=== PATIENT | female | born 1985 | race African-American/Black ===

== ENCOUNTER 2018-04-24 14:27 | Emergency (ER) | payer OTHER ==
[~2018-04-24] VITALS: Ht 162.6 cm; Wt 65.8 kg
[~2018-04-24 14:27] MED LIST: IBUPROFEN600 MG ORAL; NKM; ROBAXIN500 MG PO
[2018-04-24] MEDS ORDERED: PREDNISONE20 MG ORAL (15:02)
--- NOTE | 2018-04-24 15:02 | Emergency Room Report ---
History of Present Illness General Chief Complaint: Skin Rash/Abscess Source: Patient Present Illness HPI 32-year-old female patient presents ER complaining of bug bite with past 2 days. Reports bug bite on her anterior left ankle which is swollen up. Reports extreme pruritus. Denies erythema or pain. Reports able ambulate. Reports taking Benadryl however swelling symptoms are still present. Reports normal range of motion of ankle. Denies history of diabetes. Denies calf pain. Denies appears to travel or immobilization. Denies fever, chest pain, shortness of breath. Denies history of injury. denies history of heart disease. Allergies: Coded Allergies: PENICILLINS (Verified Allergy, Unknown, 04/04/18) Patient History Past Medical History: see triage record Last Menstrual Period: 04/22/2018 Now: No Reviewed Nursing Documentation: PMH: Agreed; PSxH: Agreed Nursing Documentation-PMH Past Medical History: No Stated History Review of Systems All Other Systems: negative except mentioned in HPI Physical Exam Vital Signs Date Time Temp Pulse Resp B/P (MAP) Pulse Ox O2 Delivery O2 Flow Rate FiO2 04/24/18 14:39 98.4 80 14 116/70 98 Room Air 98.4 Sp02 EP Interpretation: reviewed, normal General Appearance: well appearing, no apparent distress, alert, GCS 15, non- toxic Head: normocephalic, atraumatic Eyes: bilateral eye normal inspection, bilateral eye PERRL ENT: hearing grossly normal, normal pharynx, no angioedema, normal voice, uvula midline, moist mucus membranes Neck: full range of motion Respiratory: lungs clear, normal breath sounds, no rhonchi, no respiratory distress, no accessory muscle use, no wheezing, speaking full sentences Cardiovascular #1: regular rate, rhythm, no edema Cardiovascular #2: 2+ dorsalis pedis (R), 2+ dorsalis pedis (L) Musculoskeletal: back normal, digits/nails normal, gait/station normal, normal range of motion, non-tender, swelling - anterior left ankle, no tenderness to palpation, no erythema, no ecchymosis , other - NVI, no TTP Neurologic: alert, oriented x3, responsive, motor strength/tone normal, sensory intact Skin: no rash, other - no erythema, no ecchymosis, no red streaking, no drainage, no fluctuance or induration, no crepitus Medical Decision Making PA Attestation Dr. Rodríguez is my supervising Physician whom patient management has been discussed with. Diagnostic Impression: Primary Impression: Bug bite ER Course Pt. presents to the ED c/o bug bite. Ddx considered but are not limited to atopic dermatitis, bug bite, urticaria, allergic reaction. Vital signs: are WNL, pt. is afebrile ER COURSE: physical exam shows swelling on anterior left ankle consistent with recent bug bite, no erythema or signs of infection, no warmth to touch, does not require oral antibiotics at this time. Will provide patient with prednisone for itching symptoms, first dose provided in the ER. Advised on use of OTC topical abx. Do not scratch, apply cool compresses to affected area. Followup with PCP and request referral to derm. take Benadryl at night, take Claritin during the day. do not scratch itch, apply cool compresses. Joss wrap applied the left ankle for swelling symptoms, instructed patient to ice and keep elevated.checked afterwards by me, neurovascularly intact with proper alignment Work note provided. DISCHARGE: -Rx given for Prednisone At this time pt. is stable for d/c to home. Patient resting comfortably, in no acute distress, nontoxic appearing. Care plan and follow up instructions have been discussed with the patient prior to discharge. Patient provided with printed patient care instructions, and any necessary prescriptions. Patient instructed to follow-up with primary care provider in 3 - 5 days. Patient questions asked and answered. Patient reports understanding and agreement to treatment plan. ER precautions given. Patient instructed to return to ER immediately for any new or worsening of symptoms including but not limited to increasing SOB, persistent fever. - Please note that this Emergency Department Report was dictated using [employer] agent technology software, occasionally this can lead to erroneous entry secondary to interpretation by the dictation equipment. Last Vital Signs Date Time Temp Pulse Resp B/P (MAP) Pulse Ox O2 Delivery O2 Flow Rate FiO2 04/24/18 14:39 98.4 80 14 116/70 98 Room Air 98.4 Disposition: HOME, SELF-CARE Condition: Stable Scripts Prednisone* (PREDNISONE*) 20 Mg Tablet 40 MG ORAL DAILY for 3 Days, #6 TAB Prov: Marcio Henley 04/24/18 Patient Instructions: Bedbugs, [id number], Insect Bite, [id number] Additional Instructions: Followup with primary care provider in 3 -5 days. RICE: rest, ice, compression, elevation. Benadryl at night and Claritin during the day for itching symptoms.SE of Benadryl drowsiness, do not take prior to drinking, driving, operating heavy machinery. Take medications as directed. Patient questions asked and answered. ER precautions given, patient instructed to return to ER immediately for any new or worsening of symptoms. Marcio Henley Apr 24, 2018 15:02
[2018-04-24 15:15] VITALS: BP 116/70
== END 2018-04-24 15:15 | disposition home or self-care (01) ==
LOC: EMR 14:50
DX: S90.562A Insect bite (nonvenomous), left ankle, initial encounter (principal); Y92.9 Unspecified place or not applicable; Z88.0 Allergy status to penicillin
CPT/HCPCS: 99282; J7512